=== PATIENT | female | born 1965 | race Caucasian/White ===

== ENCOUNTER 2017-01-06 03:21 | Emergency (ER) | payer BC ==
[2017-01-06] MEDS ORDERED: TRANEXAMIC ACID 1,000 MG/10 ML ML TOP ONE (03:37)
[2017-01-06 03:41] LABS: BASO % 0.3 % (0-6); GRAN % 47.5 % (47-80); HEMOGLOBIN 14.1 gm/dl (11.6-16.0); LYMPH % 39.8 % (16-45); MEAN CELL VOLUME 83.5 fl (81-97); MEAN CORPUSCULAR HGB CONC 33.6 g/dl (32-36); MEAN PLATELET VOLUME 8.5 fl (7.4-10.4); MONO % 9.4 % (0-9); PLATELET COUNT 458 K/uL (130-400); RED BLOOD COUNT 5.03 M/uL (3.80-5.40); WHITE BLOOD COUNT W/O DIFF 11.9 K/uL (4.2-12.2)
--- NOTE | 2017-01-06 03:51 | Emergency Department Record ---
History of Present Illness - General Chief complaint: Nosebleed/epistaxis Stated complaint: NOSEBLEED Time Seen by Provider: 01/06/17 03:44 Source: Patient Mode of Arrival: Ambulatory Limitations: No limitations - History of Present Illness Initial comments: 51 yo female presents with a nose bleed. The bleeding started about 2 hours ago prior to coming in to the ED. She has had some bleeding on and off for the last week. No anti-coagulants. The bleeding started in the left nostril. No history of nasal surgery. PCP is the [facility] at [facility]. She does have a history of HTN. MD complaint: Epistaxis Onset/Timin -: Minutes(s) Severity: Severe Consistency: Constant Improves with: None Worsens with: None - Related Data Allergies Allergy/AdvReac Type Severity Reaction Status Date / Time No Known Drug Allergies Allergy Verified 01/06/17 03:31 Travel Screening - Travel/Exposure Within Last 30 Days Have you traveled within the last 30 days?: No - Travel/Exposure Within Last Year Have you traveled outside the [place] in the last year?: No - Additonal Travel Details Have you been exposed to anyone with a communicable illness?: No - Travel Symptoms Symptom Screening: None Review of Systems Constitutional: Denies: Chills, Fever, Malaise, Weakness Eyes: Denies: Eye discharge ENT: Reports: Epistaxis. Denies: Congestion, Throat pain Respiratory: Denies: Cough, Dyspnea, Hemoptysis, Wheezes Cardiovascular: Denies: Chest pain, Palpitations, Syncope Endocrine: Denies: Fatigue Gastrointestinal: Denies: Abdominal pain, Diarrhea, Nausea, Vomiting Musculoskeletal: Denies: Arthralgia, Back pain, Joint swelling, Myalgia Skin: Denies: Bruising, Change in color, Rash Neurological: Denies: Headache, Numbness, Weakness Psychiatric: Denies: Anxiety Hematological/Lymphatic: Denies: Blood Clots, Easy bleeding, Easy bruising, Swollen glands Past Medical History - SOCIAL HISTORY Smoking Status: Former smoker Alcohol Use: None Drug Use: None - RESPIRATORY Hx Respiratory Disorders: No - CARDIOVASCULAR Hx Cardio Disorders: Yes Hx Hypertension: Yes - GI Hx GI Disorders: No - Hx Genitourinary Disorders: No - ENDOCRINE Hx Endocrine Disorders: Yes Hx Diabetes: Yes ("borderlilne") - MUSCULOSKELETAL Hx Musculoskeletal Disorders: No - PSYCH Hx Psych Problems: No - HEMATOLOGY/ONCOLOGY Hx Hematology/Oncology Disorders: No Family Medical History Any Significant Family History?: No Physical Exam - General General Appearance: Alert, Oriented x3, Cooperative, No acute distress Limitations: No limitations - Head Head exam: negative: Atraumatic, Normal inspection - Eye Eye exam: Normal appearance. negative: Conjunctival injection, Periorbital swelling - ENT ENT exam: negative: Normal exam, Normal orophraynx Ear exam: Normal external inspection Nasal Exam: Active bleeding (brisk copious bleeding from the left nostril with some around to the right as well.). negative: Normal inspection, Dried blood Mouth exam: Other (posterior pharynx bleeding). negative: Normal external inspection Throat exam: Other (posterior bleeding) - Neck Neck exam: Normal inspection - Respiratory Respiratory exam: Normal lung sounds bilaterally. negative: Respiratory distress - Cardiovascular Cardiovascular Exam: Regular rate, Normal rhythm, Normal heart sounds - Rectal Rectal exam: Deferred - exam: Deferred - Extremities Extremities exam: negative: Normal inspection - Neurological Neurological exam: Alert, Oriented X3 - Psychiatric Psychiatric exam: Normal affect, Normal mood - Skin Skin exam: Dry, Intact, Normal color, Warm Course Vital Signs 01/06/17 01/06/17 03:22 03:37 Pulse Rate 103 H Pulse Rate [ 95 H Pulse Ox Probe] Respiratory 20 20 Rate Blood Pressure 172/98 [Left Arm] Pulse Ox 100 99 - Reevaluation(s) Reevaluation #1: The patient was seen on arrival with very brisk bleeding The nasal cavity was packed with cotton soaked TLE and direct pressure placed with no improvement A Rhinorocket balloon was then placed and inflated. The copious bleeding continued TXA soaked pad was attempted. Both anterior and posterior bleeding continued A posterior packing system was placed with posterior then anterior component inflated finally with improved hemostasis control. 01/06/17 03:48 01/06/17 03:51 CBC reviewed. Hgb 14.1 01/06/17 03:59 No acute changes on the BMP Given the brisk bleeding that required posterior packing I recommended transfer to a center with ENT [facility] Zhou regarding transfer to a facility with ENT. The patient was accepted for transfer. The bleeding is controlled with the posterior packing at this time. Medical Decision Making - Lab Data Result diagrams: 01/06/17 03:35 11/30/17 03:35 Lab Results 01/06/17 Range/Units 03:35 WBC 11.9 (4.2-12.2) K/uL RBC 5.03 (3.80-5.40) M/uL Hgb 14.1 (11.6-16.0) gm/dl Hct 42.0 (35.0-47.0) % MCV 83.5 (81-97) fl MCH 28.0 (27-33) pg MCHC 33.6 (32-36) g/dl RDW 16.0 H (11.5-14.5) % Plt Count 458 H (130-400) K/uL MPV 8.5 (7.4-10.4) fl Gran % 47.5 (47-80) % Lymphocytes % 39.8 (16-45) % Monocytes % 9.4 H (0-9) % Eosinophils % 3.0 (0-6) % Basophils % 0.3 (0-6) % Disposition Disposition: Transfer Clinical Impression: Epistaxis Disposition: Acute Care Hospital Transfer Transfer To: [facility] Reason For Transfer: Epistaxis with posterior packing Accepting Physician: Abelardo Time Discussed w/Accepting Physician: 04:05 Condition: (2) Stable Forms: Patient Portal Access Time of Disposition: 04:05 Quality - Quality Measures Quality Measures: N/A - Blood Pressure Screening Does Patient Have Any of the Following: No Blood Pressure Classification: Hypertensive Reading Systolic Measurement: 179 Diastolic Measurement: 97 Screening for High Blood Pressure: < Pre-Hypertensive BP, F/U Documented > [ [id number]] Pre-Hypertensive Follow-up Interventions: Referral to alternative/primary care provider.
[2017-01-06 03:52] LABS: INR 0.95; PARTIAL THROMBOPLASTIN TIME 24.4 SECONDS (24.5-39.1); PROTHROMBIN TIME (PATIENT) 10.3 SECONDS (9.5-12.1)
[2017-01-06 03:53] LABS: BLOOD UREA NITROGEN 15 mg/dL (6-20); CREATININE 0.6 mg/dL (0.5-0.9); EST GLOMERULAR FILTRATION RATE > 60 mL/min
[2017-01-06 03:56] LABS: GLUCOSE,RANDOM 155 mg/dL (74-109)
[2017-01-06] MEDS ORDERED: TOPICAL LIDOCAINE W/ EPI 5 ML TOP ONE (03:57)
== END 2017-01-06 04:15 | disposition short-term general hospital (02) ==
LOC: ER 03:21
DX: R04.0 Epistaxis (principal); I10 Essential (primary) hypertension; Z87.891 Personal history of nicotine dependence
CPT/HCPCS: 30903 ×2; 99285 ×2; 85025; 85730; 85610; 80048; J3490